=== PATIENT | male | born 1950 | race Caucasian/White ===

== ENCOUNTER 2017-11-23 06:34 | Day surgery (SDC) | payer MEDICARE ==
[2017-11-22 14:25] VITALS: BMI 35.4
[2017-11-23] MEDS ORDERED: Iopamidol 370 76% 100 ML VIAL ONE (08:35)
[2017-11-23] MEDS ORDERED: Lidocaine 1% (PF) 30 ML VIAL ONE (08:37)
[2017-11-23] MEDS ORDERED: Fentanyl 100 MCG/2 ML VIAL ONE (08:38)
[2017-11-23] MEDS ORDERED: Midazolam HCl 2 mg/2 ml Vial ONE (08:38)
[2017-11-23 08:45] LABS: #Eosinphils 0.3 thou/uL (0.0-0.7); #Lymphocytes 1.3 thou/uL (1.20-3.40); #Monocytes 0.7 thou/uL (0.11-0.59); %Basophils 0.3 % (0.0-1.0); %Eosinophils 5.8 % (0.0-10.0); %Lymphocytes 24.5 % (21.0-51.0); %Monocytes 12.5 % (0.0-10.0); %Neutrophils 56.9 % (42.0-75.0); Hemoglobin 13.6 g/dL (14.0-18.0); Mean Corpuscular HGB CONC 33.3 g/dL (32.0-36.0); Mean Corpuscular Hemoglobin 32.8 pg (27.0-31.0); Mean Corpuscular Volume 98.6 fL (78.0-98.0); Mean Platelet Volume 9.3 fL (7.4-10.4); Platelet Count 151 thou/uL (130-400); RBC Distribution Width 12.7 % (11.5-14.5); Red Blood Cell (RBC) Count 4.14 mill/uL (4.70-6.10); White Blood Cell (WBC) Count 5.3 thou/uL (4.8-10.8)
[2017-11-23 09:05] LABS: INR-International Normal Ratio 1.2; PTT 30.4 SEC (22.9-36.1); Prothrombin Time 15.5 SEC (12.0-14.7)
[2017-11-23] MEDS ORDERED: Nitroglycerin 100MG/250ML BOT 250 ML ONE (09:12)
[2017-11-23] MEDS ORDERED: Verapamil 5 MG/2 ML VIAL ONE (09:12)
[2017-11-23] MEDS ORDERED: Heparin 10,000 UNITS/1 ML VIAL ONE (09:12)
[2017-11-23 09:15] LABS: ALT (SGPT) 13 U/L (8-55); AST (SGOT) 17 U/L (5-34); Alkaline Phosphatase 95 U/L (40-150); Anion Gap 11 mmol/L (10-20); BUN (Urea Nitrogen) 14 mg/dL (8.4-25.7); Bilirubin, Total 0.3 mg/dL (0.2-1.2); Calc. Creatinine Clearance 97 mL/min (70-130); Calcium 9.1 mg/dL (7.8-10.44); Carbon Dioxide 28 mmol/L (23-31); Cardiac Risk 3.8 (Less than 4.5); Chloride 104 mmol/L (98-107); Cholesterol 126 mg/dl (< 200 Desired); Estimated GFR-MDRD 63; Globulin 2.8 g/dL (2.4-3.5); Glucose 99 mg/dL (80-115); HDL Cholesterol 33 mg/dL (>60 Neg Risk); LDL Cholesterol, Calculated 74 mg/dL; Potassium 3.8 mmol/L (3.5-5.1); Protein, Total 6.8 g/dL (5.8-8.1); Sodium 139 mmol/L (136-145); Triglycerides 97 mg/dL (Less than 150)
--- NOTE | 2017-11-27 10:01 | EKG ---
Test Reason : PREOP Blood Pressure : / mmHG Vent. Rate : 060 BPM Atrial Rate : 060 BPM P-R Int : 198 ms QRS Dur : 096 ms QT Int : 402 ms P-R-T Axes : 030 -13 014 degrees QTc Int : 402 ms Normal sinus rhythm Normal ECG No previous ECGs available Confirmed by DR. Benedict MEIER ([id number]) on 11/27/2017 10:01:11 AM Referred By: [email or web address] Confirmed By:DR. Benedict MEIER
== END 2017-11-23 13:00 | disposition home or self-care (01) ==
LOC: CCL 06:34
PROVIDERS: ATTEND Internal Medicine Cardiovascular Disease
DX: R07.89 Other chest pain (principal); I25.10 Atherosclerotic heart disease of native coronary artery without angina pectoris; J44.9 Chronic obstructive pulmonary disease, unspecified; F03.90 Unspecified dementia, unspecified severity, without behavioral disturbance, psychotic disturbance, mood disturbance, and anxiety; F32.9 Major depressive disorder, single episode, unspecified; G47.00 Insomnia, unspecified; E66.9 Obesity, unspecified; I73.9 Peripheral vascular disease, unspecified; I10 Essential (primary) hypertension; J98.4 Other disorders of lung; Z79.899 Other long term (current) drug therapy; Z79.01 Long term (current) use of anticoagulants; Z68.35 Body mass index [BMI] 35.0-35.9, adult
CPT/HCPCS: 80053; 80061; 85025; 85610; 85730; 93458; 93005; C1769; 93010; 99152; 99153; J1644; J2001; J2250; J3010